=== PATIENT | male | born 1980 | race African-American/Black ===

== ENCOUNTER 2024-08-31 12:43 | Emergency (ER) | payer SELFPAY ==
[2024-08-31 12:54] VITALS: BP 126/79; PULSE 68; RESP 20; TEMP 98.5; BMI 33.1
[2024-08-31 14:32] LABS: EOS % 1.6 % (0-4.5); HEMATOCRIT 45.9 % (35.4-49); HEMOGLOBIN 14.7 GM/dL (11.7-16.9); LYMPH % 28.9 % (8-40); MCH 25.8 pg (25.7-33.7); MCHC 32.1 g/dl (32.0-35.9); MEAN CELL VOLUME 80.3 fl (80-96); MEAN PLT VOLUME 7.7 fl (7.5-11.1); MONO % 6.6 % (3.8-10.2); NEUT % 61.9 % (42.8-82.8); PLATELET COUNT 279 10^3/uL (134-434); RBC 5.71 M/mm3 (4.00-5.60); WHITE BLOOD COUNT 6.5 K/mm3 (4.0-10.0)
[2024-08-31 15:56] LABS: POTASSIUM 4.4 mmol/L (3.5-5.1)
[2024-08-31 15:59] LABS: ALBUMIN 4.6 g/dl (3.4-5.0); BLOOD UREA NITROGEN 8.8 mg/dL (7-18); CALCIUM 10.1 mg/dL (8.5-10.1)
[2024-08-31 16:02] LABS: CREATININE 0.9 mg/dL (0.55-1.3)
[2024-08-31 16:04] LABS: TOT PROT 7.6 g/dl (6.4-8.2)
[2024-08-31 17:28] LABS: HIV INTERPRETATION NEGATIVE (NEGATIVE)
== END 2024-08-31 16:27 | disposition home or self-care (01) ==
LOC: JER 12:43
DX: R07.9 Chest pain, unspecified (principal)
CPT/HCPCS: 36415; 71046-TC-FY; 80053; 84484; 85025; 86803; 87389; 93005; 93010; 99285-25

== ENCOUNTER 2024-09-18 17:52 | Emergency (ER) | payer OTHER ==
[2024-09-18 18:01] VITALS: BP 134/84; PULSE 92; RESP 20; TEMP 98.2; BMI 30.7
[2024-09-18 18:53] LABS: HEMATOCRIT 43.8 % (35.4-49); HEMOGLOBIN 14.2 GM/dL (11.7-16.9); LYMPH % 28.8 % (8-40); MCH 25.7 pg (25.7-33.7); MCHC 32.5 g/dl (32.0-35.9); MEAN CELL VOLUME 79.1 fl (80-96); MEAN PLT VOLUME 7.4 fl (7.5-11.1); MONO % 10.6 % (3.8-10.2); NEUT % 54.6 % (42.8-82.8); PLATELET COUNT 267 10^3/uL (134-434); RBC 5.54 M/mm3 (4.00-5.60); RDW 15.1 % (11.9-15.9); WHITE BLOOD COUNT 4.2 K/mm3 (4.0-10.0)
[2024-09-18 19:10] LABS: POTASSIUM 3.7 mmol/L (3.5-5.1)
[2024-09-18 19:12] LABS: ALBUMIN 4.2 g/dl (3.4-5.0); CALCIUM 9.6 mg/dL (8.5-10.1)
[2024-09-18 19:13] LABS: BLOOD UREA NITROGEN 9.3 mg/dL (7-18)
[2024-09-18 19:15] LABS: CREATININE 0.9 mg/dL (0.55-1.3)
[2024-09-18 19:17] LABS: TOT PROT 7.1 g/dl (6.4-8.2)
== END 2024-09-18 20:25 | disposition home or self-care (01) ==
LOC: JERFT 17:52
DX: R07.89 Other chest pain (principal); J06.9 Acute upper respiratory infection, unspecified; R20.2 Paresthesia of skin; R05.9 Cough, unspecified; Z20.822 Contact with and (suspected) exposure to COVID-19
CPT/HCPCS: 0241U-QW; 36415; 71046-TC-FY; 80053; 84484; 85025; 93005; 93010; 99285-25